=== PATIENT | female | born 1975 | race Caucasian/White ===

== ENCOUNTER 2018-12-20 10:45 | Emergency (ER) | payer BC ==
[~2018-12-20] VITALS: Ht 165.1 cm; Wt 95.3 kg
--- NOTE | 2018-12-20 11:06 | NUR ---
PT IS A/OX4, PRESENTS TO THE ER C/O R WRIST PAIN S/P FALL YESTERDAY. PT DENIES HEAD INJURY/LOC. R WRIST PAIN IS PROVOKED UPON MOVEMENT, ACHING/SHARP IN QUALITY, DOES NOT RADIATE, 8/10, CONSTANT. NO DEFORMITY TO THE EXTREMITY. PMSC NORMAL AND INTACT, CAP REFILL < 3 SECS. VSS. PT DENIES C/P, SOB, N/V/D, DIZZINESS, HEADACHE.
--- NOTE | 2018-12-20 11:13 | NUR ---
NATALIE JAVED AT BEDSIDE FOR MSE.
--- NOTE | 2018-12-20 12:09 | NUR ---
Patient discharged to home in stable conditon. Written and verbal after care instructions given. Patient verbalizes understanding of instructions. ALL BELONGINGS W/ PT. PT SELF-AMBULATED W/O DIFFICULTY.
[2018-12-20 12:10] VITALS: BP 144/89
== END 2018-12-20 12:10 | disposition home or self-care (01) ==
LOC: ER 10:45
DX: S63.501A Unspecified sprain of right wrist, initial encounter (principal); W01.0XXA Fall on same level from slipping, tripping and stumbling without subsequent striking against object, initial encounter; Y93.89 Activity, other specified; Y92.89 Other specified places as the place of occurrence of the external cause; Y99.8 Other external cause status
CPT/HCPCS: 73110; A4663